=== PATIENT | female | born 2000 | race Caucasian/White ===

== ENCOUNTER → 2025-11-06 | Emergency (ER) | payer OTHER ==
[~2025-11-06] VITALS: Ht 160 cm; Wt 70.0 kg
[~2025-11-06] MED LIST: DIPHENHYDRAMINE 50MG CAPSULE PO ONE
[2025-11-06 19:09] VITALS: TEMP 36.8; O2SAT 97
[2025-11-06 20:04] LABS: CLARITY URINE CLOUDY (CLEAR); COLOR URINE YELLOW (YELLOW); GLUCOSE URINE NEGATIVE (NEGATIVE); KETONES URINE NEGATIVE (NEGATIVE); LEUKOCYTE ESTERASE URINE 2+ (NEGATIVE); NITRITE URINE NEGATIVE (NEGATIVE); OCCULT BLOOD URINE NEGATIVE (NEGATIVE); PH URINE 6.5 (4.5-8.0); PROTEIN URINE TRACE (NEGATIVE); SPECIFIC GRAVITY URINE 1.024 (1.005-1.030); UROBILINOGEN URINE 0.2 E.U./dL (0.2-1.0)
[2025-11-06] MEDS: DIPHENHYDRAMINE 25MG CAPSULE PO SCH (20:10)
[2025-11-06] MEDS: ONDANSETRON 4MG ODT PO ONE (20:10)
[2025-11-06 20:20] LABS: BASOPHILS % 0.5 % (0.0-2.0); EOSINOPHILS % 1.4 % (0.0-5.0); HEMATOCRIT. 34.5 % (36.0-48.0); HEMOGLOBIN. 11.5 g/dL (12.0-16.0); LYMPHOCYTES % 19.4 % (20.0-50.0); MEAN PLATELET VOLUME 8.7 fl (7.4-10.4); MONOCYTES % 7.6 % (2.0-8.0); NEUTROPHILS % 71.1 % (40.0-76.0); PLATELET 256 x1000/uL (130-400); RED BLOOD CELL COUNT 3.64 mill/uL (4.2-5.4); RED CELL DISTRIBUTION WIDTH 13.0 % (11.6-14.6)
[2025-11-06 20:29] LABS: INR 1.0
[2025-11-06 20:30] LABS: CREATININE 0.5 mg/dL (0.6-1.0); UREA NITROGEN BLOOD 8 mg/dL (9-23)
[2025-11-06 20:31] LABS: ETHANOL BLOOD < 10 mg/dL (<10); PROTEIN TOTAL 6.8 g/dL (6.0-8.3)
[2025-11-06 20:32] LABS: ASPARTATE AMINOTRANSFERASE 27 IU/L (<34); BILIRUBIN DIRECT < 0.1 mg/dL (<=3.0); BILIRUBIN TOTAL 0.2 mg/dL (0.1-1.0)
[2025-11-06 20:46] LABS: *AMPHETAMINES SCREEN URINE NEGATIVE (NEGATIVE); *BARBITURATES SCREEN URINE NEGATIVE (NEGATIVE); *BENZODIAZEPINES SCREEN URINE NEGATIVE (NEGATIVE); *COCAINE SCREEN URINE NEGATIVE (NEGATIVE)
[2025-11-06 20:47] LABS: CANNABINOID URINE SCREEN NEGATIVE (NEGATIVE); ECSTASY MDMA SCREEN URINE NEGATIVE (NEGATIVE); METHADONE URINE SCREEN NEGATIVE (NEGATIVE); OPIATES URINE SCREEN NEGATIVE (NEGATIVE); PHENCYCLIDINE URINE SCREEN NEGATIVE (NEGATIVE)
[2025-11-06 20:47] LABS: HCG SCREEN POSITIVE
[2025-11-06 20:48] LABS: B-HCG QUANTITATIVE 6640 mIU/mL (<6)
[2025-11-06 21:25] LABS: BACTERIA URINE 2+; RBC URINE 0-2 /hpf (0-2); SQUAMOUS EPITHELIAL CELL URINE 1+ /lpf (RARE/1+)
[2025-11-06 22:07] VITALS: BP 110/66; PULSE 75; RESP 19; O2SAT 100
[2025-11-06] MEDS: CEPHALEXIN 250MG CAPSULE PO ONE (22:07)
[2025-11-09 04:11] LABS: HSV TYPE 2 SPECIFIC AB IGG Non Reactive (Non Reactive)
== END ==
LOC: ER 19:03
DX: O26.892 Other specified pregnancy related conditions, second trimester (principal); R10.20 Pelvic and perineal pain unspecified side; A05.9 Bacterial foodborne intoxication, unspecified; Z3A.26 26 weeks gestation of pregnancy; Z79.899 Other long term (current) drug therapy
CPT/HCPCS: 86695; 86696; 80076; 80305; 80048; 81003; 80320; 84703; 84702; 83735; 85025; 85610; 85730; 86850; 86900; 86901; 87340; 86592; 36415; 76815; 99285; Q0163; Q0162; G0480